=== PATIENT | female | born 1940 | race Asian ===

== ENCOUNTER 2019-09-15 14:14 | Emergency (ER) | payer OTHER ==
[2019-09-15] VITALS (7 sets, daily range): BP systolic 129–140; BP diastolic 56–70
[~2019-09-15] VITALS: Ht 160 cm; Wt 59.0 kg
--- NOTE | 2019-09-15 14:23 | Emergency Room Report ---
History of Present Illness General Source: Patient, EMS Present Illness HPI Patient lost consciousness. Currently she slumped down to the floor and did not fall. This is the third episode that she is had where she is lost consciousness. From the prior to time she is refused to come to the hospital. Family called paramedics. Accu-Chek was normal. The patient is not been eating well. She has bilateral jaw pain due to arthritis. Has been taking tramadol. She is unclear as to when her last bowel movement was. There is been no fever or chills. She denies any chest pain. She has generalized pain. No sore throat, chest pain, palpitations, nausea, vomiting, diarrhea, dysuria, abdominal pain, shortness of breath, rashes, anxiety, visual changes, dizziness , headache. Allergies: Coded Allergies: No Known Allergies (Unverified , 09/15/19) Patient History Past Medical History: see triage record Past Surgical History: other - Thyroidectomy Social History: Denies: smoking, alcohol use, drug use Social History Narrative Living with family Reviewed Nursing Documentation: PMH: Agreed; PSxH: Agreed Review of Systems All Other Systems: negative except mentioned in HPI Physical Exam Vital Signs Date Time Temp Pulse Resp B/P (MAP) Pulse Ox O2 Delivery O2 Flow Rate FiO2 09/15/19 14:16 97.2 78 16 119/72 (88) 98 Room Air Sp02 EP Interpretation: reviewed, normal General Appearance: alert, non-toxic, thin, Chronically Ill Head: normocephalic Eyes: bilateral eye EOMI, bilateral eye other - Because bilaterally ENT: moist mucus membranes, other - TMJ tenderness bilaterally Neck: supple, other - Thyroid scar Respiratory: chest non-tender, lungs clear, normal breath sounds Cardiovascular #1: no edema, bradycardia, other - No myxedema Cardiovascular #2: 2+ radial (R) Gastrointestinal: non tender, soft, decreased bowel sounds, scaphoid Genitourinary: no CVA tenderness Musculoskeletal: normal range of motion, no calf tenderness, Deshawn's Sign negative, swelling - MCPs Neurologic: tool inspector III-XII nml as tested, oriented - X2, sensory intact, motor weakness - Generalized, speech normal, other - Delayed reflex relaxation Psychiatric: depressed affect Skin: other - Xerosis Medical Decision Making Diagnostic Impression: Primary Impression: Syncope Qualified Codes: R55 - Syncope and collapse Additional Impressions: Failure to thrive Qualified Codes: R62.7 - Adult failure to thrive Arthritis Bradycardia Hypothyroid Qualified Codes: E89.0 - Postprocedural hypothyroidism UTI (urinary tract infection) Qualified Codes: N39.0 - Urinary tract infection, site not specified ER Course Patient presents with syncopal episode. Differential includes acute myocardial infarction, arrhythmia, hypotension, electrolyte imbalance, failure to thrive amongst others. Also we need to exclude occult of infection. Evaluation with EKG, chest x-ray and labs. Based on her neurologic exam at this time CT of the head is not indicated. Patient is placed on a quality assurance monitor body and an IV hydration will be started. Thyroid needs to be checked also. EKG with bradycardia. Chest x-ray cardiomegaly. Normal white count. Elevated TSH. Pyuria. Cortisone given for hypothyroidism. Rocephin started for UTI. Discussed with Dr. Arellano who accepts patient. Laboratory Tests Test 09/15/19 14:45 09/15/19 15:30 White Blood Count 5.1 K/UL (4.8-10.8) Red Blood Count 4.23 M/UL (4.20-5.40) Hemoglobin 12.7 G/DL (12.0-16.0) Hematocrit 39.8 % (37.0-47.0) Mean Corpuscular Volume 94 FL (80-99) Mean Corpuscular Hemoglobin 30.0 PG (27.0-31.0) Mean Corpuscular Hemoglobin Concent 31.9 G/DL (32.0-36.0) L Red Cell Distribution Width 12.7 % (11.6-14.8) Platelet Count 244 K/UL (150-450) Mean Platelet Volume 9.0 FL (6.5-10.1) Neutrophils (%) (Auto) 62.5 % (45.0-75.0) Lymphocytes (%) (Auto) 27.1 % (20.0-45.0) Monocytes (%) (Auto) 7.7 % (1.0-10.0) Eosinophils (%) (Auto) 1.6 % (0.0-3.0) Basophils (%) (Auto) 1.1 % (0.0-2.0) Erythrocyte Sedimentation Rate 24 MM/HR (0-30) Prothrombin Time 10.0 SEC (9.30-11.50) Prothrombin Time INR 0.9 (0.9-1.1) PTT 26 SEC (23-33) Sodium Level 141 MMOL/L (136-145) Potassium Level 4.4 MMOL/L (3.5-5.1) Chloride Level 104 MMOL/L (98-107) Carbon Dioxide Level 33 MMOL/L (21-32) H Anion Gap 4 mmol/L (5-15) L Blood Urea Nitrogen 24 mg/dL (7-18) H Creatinine 0.9 MG/DL (0.55-1.30) Estimate Glomerular Filtration Rate mL/min (>60) Glucose Level 104 MG/DL (74-106) Calcium Level 10.3 MG/DL (8.5-10.1) H Total Bilirubin 0.6 MG/DL (0.2-1.0) Aspartate Amino Transferase (AST) 21 U/L (15-37) Alanine Aminotransferase (ALT) 25 U/L (12-78) Alkaline Phosphatase 64 U/L (46-116) Total Creatine Kinase 87 U/L (26-308) Troponin I 0.020 ng/mL (0.000-0.056) Pro-B-Type Natriuretic Peptide 126 pg/mL (0-125) H Total Protein 6.9 G/DL (6.4-8.2) Albumin 4.0 G/DL (3.4-5.0) Globulin 2.9 g/dL Albumin/Globulin Ratio 1.4 (1.0-2.7) Thyroid Stimulating Hormone (TSH) 8.691 uiU/mL (0.358-3.740) Urine Color Pale yellow Urine Appearance Slightly cloudy Urine pH 8 (4.5-8.0) Urine Specific [place] 1.015 (1.005-1.035) Urine Protein Negative (NEGATIVE) Urine Glucose (UA) Negative (NEGATIVE) Urine Ketones Negative (NEGATIVE) Urine Blood Negative (NEGATIVE) Urine Nitrite Negative (NEGATIVE) Urine Bilirubin Negative (NEGATIVE) Urine Urobilinogen Normal MG/DL (0.0-1.0) Urine Leukocyte Esterase 2+ (NEGATIVE) H Urine RBC 0-2 /HPF (0 - 2) Urine WBC 5-10 /HPF (0 - 2) H Urine Squamous Epithelial Cells Occasional /LPF Urine Bacteria Moderate /HPF (NONE) H Urine Opiates Screen Negative (NEGATIVE) Urine Barbiturates Screen Negative (NEGATIVE) Phencyclidine (PCP) Screen Negative (NEGATIVE) Urine Amphetamines Screen Negative (NEGATIVE) Urine Benzodiazepines Screen Negative (NEGATIVE) Urine Cocaine Screen Negative (NEGATIVE) Urine Marijuana (THC) Screen Negative (NEGATIVE) EKG Diagnostic Results Rate: bradycardiac Rhythm: NSR ST Segments: no acute changes - Nonspecific ST-T wave changes Rhythm Strip Diag. Results EP Interpretation: yes Rhythm: no PVC's, no ectopy, other - Bradycardia Chest X-Ray Diagnostic Results Chest X-Ray Diagnostic Results : Chest X-Ray Ordered: Yes # of Views/Limited/Complete: 1 View Indication: Other EP Interpretation: Yes Interpretation: no consolidation, no effusion, no pneumothorax, other - Cardiomegaly Impression: Other Electronically Signed by: Electronically signed by Hector Rosales MD Last Vital Signs Date Time Temp Pulse Resp B/P (MAP) Pulse Ox O2 Delivery O2 Flow Rate FiO2 09/15/19 18:43 98.0 78 14 140/66 98 Room Air 76 Status: improved Disposition: XFER SHT-TRM HOSP Condition: Serious Hector Rosales MD Sep 15, 2019 14:23
[2019-09-15 15:33] LABS: BASOPHILS % (AUTO) 1.1 % (0.0-2.0); EOSINOPHILS % (AUTO) 1.6 % (0.0-3.0); HEMATOCRIT 39.8 % (37.0-47.0); HEMOGLOBIN 12.7 G/DL (12.0-16.0); LYMPHOCYTES % (AUTO) 27.1 % (20.0-45.0); MEAN CORPUSCULAR VOLUME 94 FL (80-99); MONOCYTES % (AUTO) 7.7 % (1.0-10.0); NEUTROPHILS % (AUTO) 62.5 % (45.0-75.0); PLATELET COUNT 244 K/UL (150-450); RED BLOOD COUNT 4.23 M/UL (4.20-5.40); RED CELL DISTRIBUTION WIDTH 12.7 % (11.6-14.8); WHITE BLOOD COUNT 5.1 K/UL (4.8-10.8)
[2019-09-15 15:34] LABS: ANION GAP 4 mmol/L (5-15); BLOOD UREA NITROGEN 24 mg/dL (7-18); CALCIUM 10.3 MG/DL (8.5-10.1); CARBON DIOXIDE 33 MMOL/L (21-32); CHLORIDE 104 MMOL/L (98-107); CREATININE 0.9 MG/DL (0.55-1.30); POTASSIUM 4.4 MMOL/L (3.5-5.1); SODIUM 141 MMOL/L (136-145)
[2019-09-15 15:36] LABS: INR 0.9 (0.9-1.1)
[2019-09-15 15:44] LABS: APPEARANCE,URINE SLIGHTLY CLOUDY; BILIRUBIN, URINE NEGATIVE (NEGATIVE); COLOR,URINE PALE YELLOW; GLUCOSE, URINE (UA) NEGATIVE (NEGATIVE); KETONES,URINE NEGATIVE (NEGATIVE); LEUKOCYTE ESTERASE ,URINE 2+ (NEGATIVE); NITRITE,URINE NEGATIVE (NEGATIVE); PH,URINE 8 (4.5-8.0); PROTEIN,URINE NEGATIVE (NEGATIVE); UROBILINOGEN,URINE NORMAL MG/DL (0.0-1.0)
[2019-09-15 15:45] LABS: ALANINE AMINOTRANSFERASE 25 U/L (12-78); ALBUMIN/GLOBULIN RATIO 1.4 (1.0-2.7); ALKALINE PHOSPHATASE 64 U/L (46-116); ASPARTATE AMINO TRANSFERASE 21 U/L (15-37); BILIRUBIN,TOTAL 0.6 MG/DL (0.2-1.0); CREATINE KINASE 87 U/L (26-308)
[2019-09-15] MEDS ORDERED: Hydrocortisone 100mg Inj IV ONE (16:00)
--- NOTE | 2019-09-15 16:33 | Diagnostic Imaging Report ---
Indication: Shortness of breath Technique: One view of the chest Comparison: none Findings: The heart is upper limits normal in size, demonstrates left ventricular hypertrophy configuration. The aorta is tortuous and calcified. The lungs and pleural spaces are clear. There are degenerative changes of the lumbar spine Impression: No acute process
[2019-09-15] MEDS ORDERED: cefTRIAXone 1 GM in NS 55 ML IVPB ONE (16:45)
== END 2019-09-15 19:43 | disposition short-term general hospital (02) ==
LOC: EDBD 14:14 → EMR 14:40
DX: R55 Syncope and collapse (principal); N39.0 Urinary tract infection, site not specified; R62.7 Adult failure to thrive; R89.0 Abnormal level of enzymes in specimens from other organs, systems and tissues; R00.1 Bradycardia, unspecified; M19.90 Unspecified osteoarthritis, unspecified site
CPT/HCPCS: 36415; 71045; 80053; 80307; 81003; 82550; 83880; 84443; 84484; 85025; 85610; 85651; 85730; 87086; 87181; 93005; 96361; 96365; 96375; J0696; J1720; J7030; Z7502; 99284